=== PATIENT | female | born 1970 | race Caucasian/White ===

== ENCOUNTER → 2020-12-01 | Outpatient (CLI) | payer OTHER ==
[~2020-12-01] MED LIST: BUPR150T5; LEVO25TA5; PHEN15CA
== END ==
LOC: M LABSMTC 11:25
PROVIDERS: ATTEND Anesthesiology
DX: Z01.812 Encounter for preprocedural laboratory examination (principal); Z20.822 Contact with and (suspected) exposure to COVID-19

== ENCOUNTER 2021-07-01 20:59 | Emergency (ER) | payer OTHER ==
[~2021-07-01] VITALS: Ht 167.6 cm; Wt 105.8 kg
[~2021-07-01 20:59] MED LIST changes: -PHEN15CA; +PHEN15CA6
[2021-07-01 21:00] VITALS: BP 124/90
[2021-07-01 22:06] LABS: BASO # 0.1 10^3/uL (0.0-0.2); BASO % 0.7 % (0.0-1.0); EOS # 0.3 10^3/uL (0.0-0.5); EOS % 4.2 % (0.0-3.0); LYMPH # 2.4 10^3/uL (1.5-5.0); LYMPH % 33.1 % (24.0-44.0); MEAN CORPUSCULAR HEMOGLOBIN 30.3 pg (27.0-33.0); MEAN CORPUSCULAR HGB CONC 33.3 g/dl (32.0-36.5); MEAN CORPUSCULAR VOLUME 90.9 fl (80.0-96.0); MONO # 0.8 10^3/uL (0.0-0.8); MONO % 10.2 % (2.0-8.0); NEUTROPHILS # 3.8 10^3/uL (1.5-8.5); NEUTROPHILS % 51.5 % (36.0-66.0); PLATELET COUNT, AUTOMATED 346 10^3/uL (150-450); RED BLOOD COUNT 4.62 10^6/uL (4.00-5.40); WHITE BLOOD COUNT 7.3 10^3/uL (4.0-10.0)
[2021-07-01 22:30] LABS: BILIRUBIN,DIRECT 0.1 MG/DL (0.0-0.2); BILIRUBIN,TOTAL 0.3 MG/DL (0.2-1.0); TOTAL PROTEIN 7.4 GM/DL (6.4-8.2)
[2021-07-01] MEDS ORDERED: SUCRALFATE 1 GM TAB PO ONE (23:25)
[2021-07-01] MEDS ORDERED: GI COCKTAIL 50ML BTL(HYOSCYAMINE/MAALOX/LIDOCAINE VISCOUS)(1:3:1) PO ONE (23:25)
[2021-07-01] MEDS ORDERED: PANTOPRAZOLE 40MG VIAL IV ONE (23:25)
[2021-07-02] MEDS ORDERED: CARA1TAB6 PO (01:31)
[2021-07-02] MEDS ORDERED: OMEP1CAP73 PO (01:31)
== END 2021-07-02 01:51 | disposition home or self-care (01) ==
LOC: M ED 20:59
DX: R10.13 Epigastric pain (principal); K76.0 Fatty (change of) liver, not elsewhere classified; R16.0 Hepatomegaly, not elsewhere classified
CPT/HCPCS: 76705; 80047; 80076; 81001; 83690; 85025; 87086; 93005; 96374; 99284; C9113

== ENCOUNTER → 2021-08-09 | Outpatient (CLI) | payer OTHER ==
[~2021-08-09] MED LIST changes: +BUPR-71; -BUPR150T5; +CARA1TAB6 PO; +OMEP1CAP73 PO
== END ==
LOC: M WHC 10:23
PROVIDERS: ATTEND Nurse Practitioner Family
DX: Z12.31 Encounter for screening mammogram for malignant neoplasm of breast (principal); Z80.0 Family history of malignant neoplasm of digestive organs

== ENCOUNTER 2022-06-05 21:04 | Emergency (ER) | payer OTHER ==
[~2022-06-05] VITALS: Ht 167.6 cm; Wt 104.5 kg
[2022-06-05 23:25] LABS: BASO # 0.1 10^3/uL (0.0-0.2); BASO % 0.6 % (0.0-1.0); EOS # 0.3 10^3/uL (0.0-0.5); EOS % 2.3 % (0.0-3.0); HEMOGLOBIN 14.8 g/dl (12.0-15.5); LYMPH # 2.4 10^3/uL (1.5-5.0); LYMPH % 21.8 % (24.0-44.0); MEAN CORPUSCULAR HEMOGLOBIN 30.6 pg (27.0-33.0); MEAN CORPUSCULAR HGB CONC 32.9 g/dl (32.0-36.5); MONO # 0.5 10^3/uL (0.0-0.8); MONO % 4.8 % (2.0-8.0); NEUTROPHILS # 7.6 10^3/uL (1.5-8.5); NEUTROPHILS % 70.1 % (36.0-66.0); PLATELET COUNT, AUTOMATED 373 10^3/uL (150-450); RED BLOOD COUNT 4.84 10^6/uL (4.00-5.40); WHITE BLOOD COUNT 10.9 10^3/uL (4.0-10.0)
[2022-06-05 23:39] LABS: INR 0.87; PARTIAL THROMBOPLASTIN TIME 23.5 SECONDS (24.8-34.2)
[2022-06-05] MEDS ORDERED: ASPIRIN 81MG CHEW TABLET PO ONE (23:40)
[2022-06-05 23:49] LABS: LIPASE 37 U/L (12-53)
[2022-06-05 23:51] LABS: CPK CREATINE PHOSPHOKINASE 93 U/L (34-145)
[2022-06-05 23:59] LABS: ALBUMIN 4.3 G/DL (3.2-5.2); ALKALINE PHOSPHATASE 74 U/L (46-116); ALT/SGPT 38 U/L (7.0-40); AST/SGOT 20 U/L (<34); BILIRUBIN,DIRECT < 0.1 MG/DL (<0.4); BILIRUBIN,TOTAL 0.3 MG/DL (0.3-1.2); BLOOD UREA NITROGEN 17 MG/DL (9-23); CALCIUM LEVEL 9.4 MG/DL (8.5-10.1); CARBON DIOXIDE LEVEL 27 MMOL/L (20-31); CHLORIDE LEVEL 106 MMOL/L (98-107); CK-MB VALUE MASS < 1.0 NG/ML (<3.6); CREATININE FOR GFR 0.72 MG/DL (0.55-1.30); FREE T4 0.98 NG/DL (0.89-1.76); GLOMERULAR FILTRATION RATE > 60.0 (>51); GLUCOSE, FASTING 154 MG/DL (60-100); MB/CK RELATIVE INDEX 1.07 (< OR =4); POTASSIUM SERUM 3.6 MMOL/L (3.5-5.1); SODIUM LEVEL 142 MMOL/L (136-145); THYROID STIMULATING HORMONE 4.368 uIU/ML (0.55-4.78)
[2022-06-06 00:11] LABS: TOTAL PROTEIN 7.7 G/DL (5.7-8.2)
[2022-06-06 00:45] VITALS: BP 144/78
[2022-06-06 00:57] LABS: CK-MB VALUE MASS < 1.0 NG/ML (<3.6); CPK CREATINE PHOSPHOKINASE 129 U/L (34-145); MB/CK RELATIVE INDEX 0.77 (< OR =4)
== END 2022-06-06 01:40 | disposition home or self-care (01) ==
LOC: M ED 21:04
DX: R07.9 Chest pain, unspecified (principal)

== ENCOUNTER → 2024-02-05 | Outpatient (RCR) | payer OTHER | LOC: M PT 09:09 | PROVIDERS: ATTEND Obstetrics & Gynecology | DX: N81.89 Other female genital prolapse (principal) ==

== ENCOUNTER 2024-02-27 09:15 | Outpatient (RCR) | payer OTHER | END 2024-03-06 | LOC: M PT 09:15 | PROVIDERS: ATTEND Obstetrics & Gynecology | DX: N81.89 Other female genital prolapse (principal) ==